=== PATIENT | female | born 1985 | race Caucasian/White ===

== ENCOUNTER 2018-11-12 03:50 | Inpatient (IN) | payer OTHER ==
[~2018-11-12 03:50] MED LIST: ELECTROLYTE-148 SOLN 500 ML IV ONE
[2018-11-12] MEDS ORDERED: AMPICILLIN - 2 GM in SODIUM CHLORIDE 100 ML IVPB ONE (04:20)
[2018-11-12] MEDS ORDERED: AMPICILLIN SODIUM 2 GM VIAL ONE (04:24)
[2018-11-12 04:35] LABS: BASO % 0.6 % (0-2.0); EOS % 0.4 % (0-4.5); HEMOGLOBIN 10.6 GM/dL (10.7-15.3); LYMPH % 11.1 % (8-40); MCH 27.2 pg (25.7-33.7); MCHC 34.1 g/dl (32.0-36.0); MEAN CELL VOLUME 79.8 fl (80-96); MEAN PLT VOLUME 8.6 fl (7.5-11.1); NEUT % 80.9 % (42.8-82.8); PLATELET COUNT 257 K/MM3 (134-434); RBC 3.88 M/mm3 (3.60-5.2); RDW 14.2 % (11.6-15.6); WHITE BLOOD COUNT 11.1 K/mm3 (4.0-10.0)
[2018-11-12] MEDS ORDERED: ELECTROLYTE-148 SOLN 500 ML IV ONE (04:50)
[2018-11-12 04:56] LABS: ANION GAP 8 MMOL/L (8-16); BLOOD UREA NITROGEN 18 mg/dL (7-18); CALCIUM 8.6 mg/dL (8.5-10.1); CHLORIDE 106 mmol/L (98-107); CO2 22 mmol/L (21-32); CREATININE 0.6 mg/dL (0.55-1.3); GLUCOSE,RANDOM 100 mg/dL (74-106); POTASSIUM 4.2 mmol/L (3.5-5.1); SODIUM 135 mmol/L (136-145)
[2018-11-12 05:12] VITALS: BMI 31.4
[2018-11-12] MEDS ORDERED: FENTANYL/BUPIVACAINE/NS/PF - PCEA - 50 ML DISP.SYRIN EP ONE ×5 (05:22→17:34)
[2018-11-12] MEDS ORDERED: NALOXONE HCL 0.4 MG/ML VIAL IVPUSH PRN (05:37)
[2018-11-12] MEDS ORDERED: BUPIVACAINE HCL/PF 0.25% (2.5MG/ML) 10 ML VIAL ONE (05:39)
[2018-11-12] MEDS ORDERED: LIDO 2%/EPI 1:200000 PRESRVFRE (20 ML SDVIAL) ONE (05:39)
[2018-11-12] MEDS ORDERED: FENTANYL/BUPIVACAINE/NS/PF - PCEA - 50 ML DISP.SYRIN EP SCH (05:45)
[2018-11-12 06:06] LABS: INR 0.92 (0.83-1.09); PROTHROMBIN TIME (PATIENT) 10.9 SEC (9.7-13.0)
[2018-11-12 06:09] LABS: ACTIVATED PTT 25.7 SECONDS (25.2-36.5)
[2018-11-12] MEDS: AMPICILLIN - 1 GM in SODIUM CHLORIDE 100 ML IVPB SCH ×4 (08:20→22:30)
[2018-11-12] MEDS ORDERED: AMPICILLIN SODIUM 1 GM VIAL ONE ×3 (08:20→16:20)
[2018-11-12] MEDS ORDERED: OXYTOCIN 30 UNITS in 0.9% NS 30 UNIT/500 ML INFUS.BAG IVPB ONE (08:48)
[2018-11-12] MEDS ORDERED: OXYTOCIN 30 UNITS in 0.9% NS 30 UNIT/500 ML INFUS.BAG IVPB SCH (09:00)
--- NOTE | 2018-11-12 09:04 | HP ---
Past Medical History - Admission History of Present Illness: 33 yo @ 40 3/7 wks by first trimester ultrasound, EDC 11/09/2018 complicated by: 1 GBS positive - no penicillin allergy Patient presents with chief complaint of contractions which began on 11/11/2018 @ 2000 which increased in intensity and frequency. She presented regularly justine and 3 cm dilated. She reports movement, denies leakage of fluid or vaginal bleeding. History Source: Patient Limitations to Obtaining History: No Limitations - Past Medical History Cardiovascular: No: HTN Pulmonary: No: Asthma ...: 1 ...Para: 0 ...Term: 0 ...: 0 ...Spon : 0 ...Induced : 0 ...Multiple Gestation: 0 ...LMP: 01/31/18 ... Weeks Gestation by Dates: 40.5 ...EDC by Dates: 11/07/18 ...EDC by Sono: 11/09/18 Heme/Onc: No: Anemia - Past Surgical History Past Surgical History: Yes: None Hx Myomectomy: No Hx Transabdominal Cerclage: No - Smoking History Smoking history: Former smoker Have you smoked in the past 12 months: No - Alcohol/Substance Use Hx Alcohol Use: No History of Substance Use: reports: None - Social History History of Recent Travel: No Home Medications - Allergies Allergies/Adverse Reactions: Allergies Allergy/AdvReac Type Severity Reaction Status Date / Time No Known Allergies Allergy Verified 11/12/18 05:00 - Home Medications Home Medications: Ambulatory Orders Vitamins (Sjr) - 1 tab PO DAILY 11/12/18 Family Disease History - Family Disease History Family History: Denies Review of Systems - Review of Systems Constitutional: reports: No Symptoms Cardiovascular: reports: No Symptoms Respiratory: reports: No Symptoms Genitourinary: reports: No Symptoms Musculoskeletal: reports: No Symptoms Integumentary: reports: No Symptoms Endocrine: reports: No Symptoms Psychiatric: reports: No Symptoms Physical Exam - Maternity Vital Signs: Vital Signs Temperature 97.9 F 11/12/18 06:00 Pulse Rate 84 11/12/18 08:00 Respiratory Rate 18 11/12/18 08:00 Blood Pressure 114/67 11/12/18 08:00 O2 Sat by Pulse Oximetry (%) 97 11/12/18 08:00 Constitutional: Yes: Well Nourished, No Distress, Calm Cardiovascular: Yes: Regular Rate and Rhythm Lungs: Clear to auscultation - Abdominal Exam/OB Fundal Height: 40 Number of Fetuses: Single Contractions: Yes Regularity: Regular Intensity: Unaware Monitor Mode: External Category: I Accelerations: Non-Uniform Decelerations: None - Vaginal Exam/OB Dilatation (cm): 3 Effacement (%): 90 Amniotic Membrane Status: Bulging Presentation: Vertex/Position Station: -2 - Physical Exam Edema: No ...Motor Strength: WNL Psychiatric: Yes: Alert, Oriented - Labs Lab Results: CBC, BMP 11/12/18 04:15 11/12/18 04:15 Hemorrhage Risk Assessment - Risk Factors Medium Risk Factors: Yes: None High Risk Factors: Yes: None Risk Score: 1 Risk Level: Medium Risk Assessment/Plan 33yo @ 40 3/7 wks in active labor 1. Admit to L&D 2. routine labs reviewed 3. GBS positive, no penicillin allergy 4. Pain well controlled with epidural 5. Unchanged exam, AROM performed, plan for augmentation wiht pitocin 6. Category I FHT 7. Will proceed with expectant management
--- NOTE | 2018-11-12 14:36 | PN ---
Progress Note (short form) - Note Progress Note: cx 7 cm 80 vx -1 mr, fh cat 1 , regular contraction,
--- NOTE | 2018-11-12 16:45 | PN ---
Progress Note (short form) - Note Progress Note: cx 9 cm 100 vx 0 , fhr cat 1 regular contraction, anticipate vaginal delivery
--- NOTE | 2018-11-12 18:51 | PN ---
Progress Note (short form) - Note Progress Note: cx full 100 vx 0 mr, fhr cat 1, patient pushing
[2018-11-12] MEDS ORDERED: LIDOCAINE HCL 1% PRESERVATIVE FREE - 30ML VIAL ONE (19:04)
[2018-11-12] MEDS ORDERED: OXYTOCIN 20 UNITS in 0.9% NS 20 UNIT/1,000 ML INFUS.BAG IV ONE ×2 (19:04→22:20)
[2018-11-12] MEDS: OXYTOCIN 20 UNITS in 0.9% NS 20 UNIT/1,000 ML INFUS.BAG IV SCH (20:15)
[2018-11-12] MEDS ORDERED: METHYLERGONOVINE MALEATE 0.2 MG/1 ML AMP IM PRN (20:37)
[2018-11-12] MEDS ORDERED: WITCH HAZEL 50% (TUCKS) 40 PAD/JAR PAD TP PRN (20:37)
[2018-11-12] MEDS ORDERED: BENZOCAINE 20% 57 GM BOTTLE TP PRN (20:37)
[2018-11-12] MEDS ORDERED: BISACODYL 10 MG SUPP.RECT RC PRN (20:37)
[2018-11-12] MEDS ORDERED: BENZOCAINE 28 GM HEMORRHOIDAL OINTMENT TP PRN (20:37)
--- NOTE | 2018-11-12 20:40 | PN ---
Delivery - Delivery Vaginal Delivery: Spontaneous Type of Anesthesia: Local, Epidural Episiotomy/Laceration: Midline (head delivered , ant. post shoulder with no difficulty , live baby boy 9/9 , no complication) EBL (cc): 300 Delivery, Single - Feeding Plan Initial Plan: Exclusive throughout hospitalization
[2018-11-12 20:45] LABS: VENOUS PC02 43.3 mmHg (38-52); VENOUS PH 7.31 (7.32-7.42); VENOUS PO2 28.9 mmHg (28-48)
[2018-11-12] MEDS ORDERED: D5W-LR W/ 20 UNITS OXYTOCIN 1,000 ML IV SCH (20:45)
[2018-11-12 20:46] LABS: ARTERIAL BLOOD GAS BASE EXCESS -3.9 meq/l (-2-2); ARTERIAL BLOOD GAS PCO2 58.4 mmHg (35-45); ARTERIAL BLOOD GAS pH 7.25 (7.35-7.45)
[2018-11-12 20:49] LABS: ARTERIAL BLD GAS O2 SATURATION 20.9 % (90-98.9); ARTERIAL BLOOD GAS PO2 17.6 mmHg (80-100)
[2018-11-12] MEDS ORDERED: IBUPROFEN 600 MG TABLET (FP) PO ONE (21:47)
[2018-11-12] MEDS ORDERED: ACETAMINOPHEN 325 MG TABLET (FP) ONE (21:47)
[2018-11-12] MEDS: ACETAMINOPHEN 325 MG TABLET (FP) PO PRN (21:50)
[2018-11-12] MEDS: IBUPROFEN 600 MG TABLET (FP) PO PRN (21:50)
[2018-11-12] MEDS: FERROUS SO4 325 MG TABLET (FP) PO SCH (22:47)
[2018-11-13] MEDS: IBUPROFEN 600 MG TABLET (FP) PO PRN ×5 (02:06→19:16)
[2018-11-13] MEDS: ACETAMINOPHEN 325 MG TABLET (FP) PO PRN ×5 (02:07→19:18)
--- NOTE | 2018-11-13 04:15 | PN ---
Progress Note (short form) - Note Progress Note: ppd 1 doing well, no c/o voids ok, no excess vaginal bleeding Last Vital Signs Temp Pulse Resp BP Pulse Ox 99.0 F 88 18 122/74 100 11/13/18 02:00 11/13/18 02:00 11/13/18 02:00 11/13/18 02:00 11/12/18 21:45 CBC, BMP 11/12/18 04:15 11/12/18 04:15 abdomen soft, no cva uterus firm, non tender lochia mild no excess vaginal bleeding no calf tenderness plan ambulate ,cbc plan for d/c home in am
[2018-11-13 07:27] LABS: BASO % 0.7 % (0-2.0); EOS % 0.3 % (0-4.5); LYMPH % 10.8 % (8-40); MCH 25.7 pg (25.7-33.7); MCHC 31.4 g/dl (32.0-36.0); MEAN CELL VOLUME 81.7 fl (80-96); MEAN PLT VOLUME 8.9 fl (7.5-11.1); MONO % 6.2 % (3.8-10.2); PLATELET COUNT 236 K/MM3 (134-434); RBC 3.91 M/mm3 (3.60-5.2); RDW 14.7 % (11.6-15.6); WHITE BLOOD COUNT 16.6 K/mm3 (4.0-10.0)
[2018-11-13] MEDS: FERROUS SO4 325 MG TABLET (FP) PO SCH ×2 (08:31→17:26)
[2018-11-13] MEDS: PRENATAL VITAMINS W/ FOLIC ACID TABLET (FP) PO SCH (09:41)
--- NOTE | 2018-11-13 09:41 | PN ---
Progress Note (short form) - Note Progress Note: ppd 1 doing well, no c/o , no excess vaginal bleeding CBC, BMP 11/13/18 05:15 11/12/18 04:15 Last Vital Signs Temp Pulse Resp BP Pulse Ox 98.2 F 76 18 110/60 100 11/13/18 05:58 11/13/18 05:58 11/13/18 05:58 11/13/18 05:58 11/12/18 21:45 abdomen soft, uterus firm, non tender lochia mild no calf tenderness plan ambulate , observe plan for d/c home in am
[2018-11-13] MEDS: OXYTOCIN 20 UNITS in 0.9% NS 20 UNIT/1,000 ML INFUS.BAG IV SCH (21:11)
[2018-11-13] MEDS ORDERED: SENNOSIDES/DOCUSATE COMBO (SENNA PLUS) TABLET (UD) PO PRN (22:00)
[2018-11-14] MEDS: IBUPROFEN 600 MG TABLET (FP) PO PRN ×4 (00:46→16:16)
[2018-11-14] MEDS: ACETAMINOPHEN 325 MG TABLET (FP) PO PRN ×4 (00:47→16:17)
[2018-11-14] MEDS: FERROUS SO4 325 MG TABLET (FP) PO SCH ×3 (08:21→16:44)
[2018-11-14 09:02] VITALS: BP 118/64; PULSE 52; TEMP 97.8
[2018-11-14] MEDS: PRENATAL VITAMINS W/ FOLIC ACID TABLET (FP) PO SCH (09:34)
--- NOTE | 2018-11-14 15:37 | DS ---
Physical Exam-BAKERY CHEF Vital Signs: Vital Signs Temperature 97.8 F 11/14/18 09:01 Pulse Rate 52 L 11/14/18 09:01 Respiratory Rate 18 11/14/18 09:01 Blood Pressure 118/64 11/14/18 09:01 O2 Sat by Pulse Oximetry (%) 100 11/12/18 21:45 Constitutional: Yes: Well Nourished, No Distress, Calm Eyes: Yes: WNL, Conjunctiva Clear, EOM Intact HENT: Yes: WNL, Atraumatic, Normocephalic Neck: Yes: WNL, Supple, Trachea Midline Respiratory: Yes: WNL, Regular, CTA Bilaterally Gastrointestinal: Yes: WNL, Normal Bowel Sounds, Soft Pelvis: Yes: WNL External Genitalia: Yes: Normal ....Post : Yes: Uterus firm, Uterus non-tender Breast(s): Yes: WNL Musculoskeletal: Yes: WNL Extremities: Yes: WNL Edema: Yes (trace) Edema: LLE: Trace, RLE: Trace Integumentary: Yes: WNL Neurological: Yes: WNL, Alert, Oriented Labs: CBC, BMP 11/13/18 05:15 11/12/18 04:15 Delivery - Delivery Vaginal Delivery: Spontaneous Type of Anesthesia: Local, Epidural Episiotomy/Laceration: Midline EBL (cc): 300 Delivery, Single - Stages of Labor Date 1st Stage Initiatied: 11/11/18 Time 1st Stage Initiated: 20:00 Date 2nd Stage Initiated: 11/12/18 Time 2nd Stage Initiated: 18:40 Date of Delivery: 11/12/18 Time of Delivery: 20:13 Time Placenta Delivered: 20:15 - Condition of Loan Analyst/Hide Sorter Present: No Gender: Male Weight: 9 lb 12 oz Position: Left, OA Total Hours ROM (Hrs/Mins): 11hrs 35min - 1 Minute Total Score: 9 5 Minutes Total Score: 9 - Feeding Plan Initial Plan: Exclusive throughout hospitalization Discharge Summary Reason For Visit: LABOR Procedures: Principal: normal vaginal delivery Other Procedures: male circumcision Condition: Good - Instructions Diet, Activity, Other Instructions: Physical activity Resume your normal everyday activity as tolerated no heavy lifting or exercise until seen by your surgeon. You may walk unlimited lou of and climb stairs. You may resume driving the car when you feel safe and comfortable behind the wheel. No sexual activity as instructed. Wound care If you have a bandage, leave it on, and keep dry for 48-72 hours. After that time discard the outer bandage. If they are tapes on the skin under the out of bandage leave them in place. They will peel off in the next 7 to 10 days. Do Not Peel them off. You may shower the day after surgery. If there are tapes present on the skin, you may shower over them. Diet There are no dietary restrictions. Eat healthy, high-fiber foods. Drink 6 to 8 glasses of liquid each day. This will assist in keeping your bowels are regular. Pain management You may take Tylenol or acetaminophen or Ibuprofen (for example, Motrin, Advil etc.) from my pain prescription medication is ordered should be taken as prescribed for moderate to severe pain. Call MD for any of the following: Severe pain not relieved by medication Fever of 101 or higher Excessive bleeding or drainage on dressing Inability to urinate Referrals: Elis Eller MD [Staff Physician] - - Home Medications Comprehensive Discharge Medication List: Ambulatory Orders Vitamins (Sjr) - 1 tab PO DAILY 11/12/18
[2018-11-14 16:46] LABS: BASO % 0.4 % (0-2.0); EOS % 0.9 % (0-4.5); HEMATOCRIT 26.4 % (32.4-45.2); HEMOGLOBIN 8.8 GM/dL (10.7-15.3); LYMPH % 17.5 % (8-40); MCH 26.9 pg (25.7-33.7); MCHC 33.4 g/dl (32.0-36.0); MEAN CELL VOLUME 80.5 fl (80-96); MEAN PLT VOLUME 8.5 fl (7.5-11.1); MONO % 5.9 % (3.8-10.2); NEUT % 75.3 % (42.8-82.8); PLATELET COUNT 222 K/MM3 (134-434); RBC 3.28 M/mm3 (3.60-5.2); RDW 15.2 % (11.6-15.6); WHITE BLOOD COUNT 11.3 K/mm3 (4.0-10.0)
== END 2018-11-14 18:45 | disposition home or self-care (01) | DRG 560 ==
LOC: JLDR 03:50 → J3W 22:41
PROVIDERS: ADMIT Obstetrics & Gynecology; ATTEND Obstetrics & Gynecology
PROC: 10E0XZZ Delivery of Products of Conception, External Approach (ICD-10-PCS; principal; 2018-11-12)
PROC: 0W8NXZZ Division of Female Perineum, External Approach (ICD-10-PCS; 2018-11-12)
DX: O48.0 Post-term pregnancy (principal); O99.824 Streptococcus B carrier state complicating childbirth; Z3A.40 40 weeks gestation of pregnancy; Z37.0 Single live birth; Z87.891 Personal history of nicotine dependence
CPT/HCPCS: 36415; 36600; 59409; 80048; 82803; 85025; 85610; 85730; 86593; 86850; 86900; 86901